=== PATIENT | female | born 1960 | race Caucasian/White ===

== ENCOUNTER → 2017-07-14 | Day surgery (SDC) | payer OTHER ==
--- NOTE | 2017-07-15 12:39 | PATH ---
Cytology Non-Gynecological Report Patient Name: NANDINI WEINER [facility]. Rec. #: [id number] /Age/Gender: 1960 (Age: 57) / F Account: [id number] Location: RADIOLOGY Taken: 07/14/2017 Received: 07/14/2017 Reported: 07/15/2017 Physicians: Li Freitas M.D. Specimen(s) Received RIGHT THYROID FNA Clinical History Right thyroid nodule, 1.7 x 1.34 x 1.3 cm Final Diagnosis THYROID, RIGHT, FINE NEEDLE ASPIRATION: SATISFACTORY FOR EVALUATION. B[place] CLASS II: BENIGN. CYTOLOGIC FINDINGS ARE CONSISTENT WITH A BENIGN FOLLICULAR NODULE. FEW CLUSTERS AND AGGREGATES OF SMALL FOLLICULAR CELLS IN A HEMORRHAGIC BACKGROUND WITH COLLOID. Electronically Signed Cristel Ahn M.D. Gross Description Received are eight direct smears, four of which are air-dried and Diff-Quik stained, and four of which are alcohol fixed and Pap stained. Also received is 20 ml of bloody formalin from which one cellblock is prepared.
== END | disposition home or self-care (01) ==
LOC: JRADIR 10:36
PROVIDERS: ATTEND Internal Medicine Endocrinology, Diabetes & Metabolism
PROC: 0G9H3ZX Drainage of Right Thyroid Gland Lobe, Percutaneous Approach, Diagnostic (ICD-10-PCS; principal; 2017-07-14)
DX: E04.1 Nontoxic single thyroid nodule (principal)
CPT/HCPCS: 10022; 76942; 88173; 88305-TC